=== PATIENT | male | born 1985 | race Caucasian/White ===

== ENCOUNTER 2021-07-13 08:06 | Emergency (ER) | payer OTHER ==
[~2021-07-13] VITALS: Ht 177.8 cm; Wt 98.3 kg
[2021-07-13] MEDS ORDERED: [UNRECOGNIZED DRUG - CODE] PO (08:14)
[2021-07-13 09:27] VITALS: BP 138/75
== END 2021-07-13 09:37 | disposition home or self-care (01) ==
LOC: M ED 08:06
DX: J02.9 Acute pharyngitis, unspecified (principal); R05.9 Cough, unspecified; U07.1 COVID-19; Z88.0 Allergy status to penicillin